=== PATIENT | male | born 1975 | race Caucasian/White ===

== ENCOUNTER → 2017-10-14 | Emergency (ER) | payer OTHER ==
[~2017-10-14] VITALS: Ht 172.7 cm; Wt 103.4 kg
[~2017-10-14] MED LIST: DICY20TA PO
== END | disposition home or self-care (01) ==
LOC: ER 20:45
DX: K57.90 Diverticulosis of intestine, part unspecified, without perforation or abscess without bleeding (principal); R10.32 Left lower quadrant pain

== ENCOUNTER 2017-12-28 21:26 | Emergency (ER) | payer OTHER ==
[~2017-12-28] VITALS: Ht 172.7 cm; Wt 105.7 kg
== END 2017-12-28 22:44 | disposition home or self-care (01) ==
LOC: ER 21:26
DX: M94.0 Chondrocostal junction syndrome [Tietze] (principal)

== ENCOUNTER 2023-02-25 14:53 | Emergency (ER) | payer OTHER ==
[~2023-02-25] VITALS: Ht 172.7 cm; Wt 122.9 kg
[2023-02-25] MEDS ORDERED: PEPCID AC20 MG PO (20:30)
[2023-02-25] MEDS ORDERED: ONDANSETRON ODT8 MG PO (20:30)
== END 2023-02-25 20:49 | disposition home or self-care (01) ==
LOC: ER 14:53
DX: R11.2 Nausea with vomiting, unspecified (principal); K52.9 Noninfective gastroenteritis and colitis, unspecified